=== PATIENT | female | born 1965 | race Caucasian/White ===

== ENCOUNTER 2017-11-01 20:03 | Emergency (ER) | payer MEDICARE, OTHER ==
[~2017-11-01] VITALS: Ht 157.5 cm; Wt 105.8 kg
[~2017-11-01 20:03] MED LIST: MECL25; PAXI20TA26; PROT40TA
[2017-11-01 20:05] VITALS: BP 106/53; PULSE 74; RESP 16; TEMP 98.1; O2SAT 97
[2017-11-01] MEDS ORDERED: MIDO2.5T PO ×2 (20:21→22:13)
[2017-11-01] MEDS ORDERED: PAXI10TA8 PO ×2 (20:21→22:13)
[2017-11-01] MEDS ORDERED: PROT40TA PO ×2 (20:21→22:13)
[2017-11-01] MEDS ORDERED: MECL-62 PO (20:21)
[2017-11-01] MEDS ORDERED: KETOROLAC TROMETHAMINE 60 MG/2 ML (IM) VIAL IM ONE (20:30)
--- NOTE | 2017-11-01 20:39 | PD ---
HPI Chief Complaint: Back/ Neck Pain or Injury Time Seen by Provider: 20:20 Travel History International Travel<30 days: No Contact w/Intl Traveler<30days: No Traveled to known affect area: No History of Present Illness HPI The patient was seen and examined in the presence of the nurse. She complains of back pain. Duration 2 months. She has daily back pain rather diffusely but worse across the low back on both sides. No injury. No fever. No IV drug use. She has history of fibromyalgia but deals with the pain she has daily and takes no medication other than Paxil. Sometimes she gets radiation down her legs to her feet. No muscle weakness or sensory loss or incontinence or retention. Severity is moderate. She's has dysuria sometimes. No alleviating factors. Symptoms exacerbated by her fibromyalgia PFSH Past Medical History Arthritis: Yes Anxiety: Yes Depression: Yes Cancer: No Endocrine: No GERD: Yes Genitourinary: No Immune Disorder: No Musculoskeletal: Yes Neurologic: Yes Reproductive: No Ulcer: Yes Past Surgical History Appendectomy: Yes Section: Yes Cholecystectomy: Yes Hysterectomy: Yes Pacemaker: No Social History Alcohol Use: No Tobacco Use: No Substance Use: No Allergies-Medications (Allergen,Severity, Reaction): Coded Allergies: codeine (Unverified Allergy, Mild, 11/01/17) morphine (Unverified Allergy, Mild, 11/01/17) Reported Meds & Prescriptions Reported Meds & Active Scripts Active Reported Midodrine 2.5 Mg Tab 2.5 Mg PO BID PRN Paxil (Paroxetine HCl) 10 Mg Tab 20 Mg PO DAILY Protonix (Pantoprazole Sodium) 40 Mg Tab 40 Mg PO DAILY Meclizine (Meclizine HCl) 25 Mg Tab 25 Mg PO BID Review of Systems General / Constitutional: No: Fever Eyes: No: Visual changes HENT: No: Headaches Cardiovascular: No: Chest Pain or Discomfort Respiratory: No: Shortness of Breath Gastrointestinal: No: Abdominal Pain Genitourinary: Positive: Dysuria Musculoskeletal: Positive: Myalgias, Pain Skin: No Rash Neurologic: No: Weakness Psychiatric: No: Depression Endocrine: No: Polydipsia Hematologic/Lymphatic: No: Easy Bruising Physical Exam Narrative GENERAL: Well-nourished, well-developed patient with back pain complaint. SKIN: Focused skin assessment reveals no rash and nodules. Skin is Warm and dry. HEAD: Atraumatic. Normocephalic. EYES: Pupils equal and round. No scleral icterus. No injection or drainage. ENT: No nasal bleeding or discharge. Mucous membranes pink and moist. NECK: Trachea midline. No JVD. CARDIOVASCULAR: Regular rate and rhythm. No murmur appreciated. RESPIRATORY: No accessory muscle use. Clear to auscultation. Breath sounds equal bilaterally. GASTROINTESTINAL: Abdomen soft, diffusely tender without rebound or guarding, nondistended. Hepatic and splenic margins not palpable. MUSCULOSKELETAL: No obvious deformities. No clubbing. No cyanosis. No edema. Examination is challenging. Anywhere I touch on her entire back she winces in pain and pulls away. It makes accurate examination difficult. She is very hypersensitive to light touch. NEUROLOGICAL: Awake and alert. No obvious cranial nerve deficits. Motor grossly within normal limits. Normal speech. PSYCHIATRIC: Appropriate mood and affect; insight and judgment normal. Data Data Last Documented VS Vital Signs Date Time Temp Pulse Resp B/P (MAP) Pulse Ox O2 Delivery O2 Flow Rate FiO2 11/01/17 21:13 69 16 129/61 (83) 96 Room Air 11/01/17 20:05 98.1 Orders Orders Ketorolac Inj (Toradol Inj) (11/01/17 20:30) Ct Lumb Spine W/O Contrast (11/01/17 ) Urinalysis - C+S If Indicated (11/01/17 20:29) Urine Culture (11/01/17 20:35) Labs Laboratory Tests Test 11/01/17 20:35 Urine Color YELLOW Urine Turbidity CLEAR Urine pH 6.0 Urine Specific [place] 1.025 Urine Protein NEG mg/dL Urine Glucose (UA) NEG mg/dL Urine Ketones NEG mg/dL Urine Occult Blood NEG Urine Nitrite NEG Urine Bilirubin NEG Urine Leukocyte Esterase TRACE Urine RBC 0-2 /hpf Urine WBC 20-24 /hpf Urine Squamous Epithelial Cells 0-5 /hpf Urine Bacteria RARE /hpf Microscopic Urinalysis Comment CULTURE INDICATED MDM Medical Decision Making Medical Screen Exam Complete: Yes Emergency Medical Condition: Yes Medical Record Reviewed: Yes Differential Diagnosis Chronic low back pain, fibromyalgia, compression fracture, metastatic lesion, UTI Narrative Course I have reviewed the patient's electronic medical record. Urinalysis shows 20 white cells. However she's been on 2 different courses of antibiotics for urinary infections. At this point I would favor treating based on culture results rather than throwing a third course of antibiotics at her. It is certainly not the cause of her back pain. CT of lumbosacral spine shows mild disc bulging which I suspect is an incidental finding Patient is neurologically intact. No objective findings but she is very tender everywhere on her torso I touch including back and abdomen diffusely I gave her Toradol injection. She declines narcotics. Patient has muscular back pain and I recommend primary care follow-up to start Patient asked for refills of her medications and I have done this Diagnosis Primary Impression: Chronic back pain Qualified Codes: M54.5 - Low back pain; G89.29 - Other chronic pain Additional Instructions: The patient was advised to follow up with their physician and return if they worsen. Med/Other Pt SpecificInfo: Prescription(s) given Disposition: 01 DISCHARGE HOME Condition: Stable Rickey Acharya MD Nov 01, 2017 20:39
[2017-11-01 20:48] LABS: BILIRUBIN, URINE NEG (NEG); BLOOD, URINE NEG (NEG); GLUCOSE,URINE NEG (NEG); KETONE, URINE NEG (NEG); NITRITE,URINE NEG (NEG); URINE LEUKOCYTE ESTERASE TRACE (NEG)
[2017-11-01 20:52] LABS: URINE COLOR YELLOW (YELLW/STRAW)
[2017-11-01 20:53] LABS: BACTERIA, URINE RARE /hpf; RBC, URINE 0-2 /hpf (0-3); SQUAMOUS EPITHELIAL CELL URINE 0-5 /hpf (0-5)
[2017-11-01 21:13] VITALS: BP 129/61; PULSE 69; RESP 16; O2SAT 96
--- NOTE | 2017-11-01 21:53 | RADRPT ---
EXAM DATE/TIME: 11/01/2017 20:48 [facility] COMPARISON: No previous studies available for comparison. INDICATIONS : Mid to lower back pain with no known injury. RADIATION DOSE: 40.00 CTDIvol (mGy) MEDICAL HISTORY : None SURGICAL HISTORY : None. ENCOUNTER: Initial ACUITY: 2 months PAIN SCALE: 8/10 LOCATION: [facility] TECHNIQUE: Volumetric scanning of the lumbar spine was performed. Multiplanar reconstructions in the sagittal, coronal and oblique axial planes were performed. Using automated exposure control and adjustment of the mA and/or kV according to patient size, radiation dose was kept as low as reasonably achievable t o obtain optimal diagnostic quality images. DICOM format image data is available electronically for review and comparison. FINDINGS: VERTEBRAE: Normal vertebral body height. ALIGNMENT: No evidence of subluxation. T12-L1: The thecal sac has a normal diameter. No evidence of disc bulge or protrusion. The neural foramina are patent bilaterally. L1-L2: The thecal sac has a normal diameter. No evidence of disc bulge or protrusion. The neural foramina are patent bilaterally. L2-L3: The thecal sac has a normal diameter. No evidence of disc bulge or protrusion. The neural foramina are patent bilaterally. L3-L4: The thecal sac has a normal diameter. No evidence of disc bulge or protrusion. The neural foramina are patent bilaterally. L4-L5: The thecal sac has a normal diameter. Mild broad-based bulging of the disc. The neural foramina are patent bilaterally. L5-S1: The thecal sac has a normal diameter. Mild broad-based bulging of the disc. The neural foramina are patent bilaterally. CONCLUSION: Mild disc bulging L3-L5. Osseous structures are grossly intact. Daryl Sanford MD on November 01, 2017 at 21:48 Board Certified Radiologist. This report was verified electronically.
[2017-11-01] MEDS ORDERED: TOPA50TA7 PO ×4 (22:20→22:24)
== END 2017-11-01 22:36 | disposition home or self-care (01) ==
LOC: PHED 20:03
DX: M54.5 Low back pain (principal); G89.29 Other chronic pain; M79.7 Fibromyalgia; F32.9 Major depressive disorder, single episode, unspecified; K21.9 Gastro-esophageal reflux disease without esophagitis; R82.99 Other abnormal findings in urine
CPT/HCPCS: 72131; 81001; 87086; 96372; 99285; J1885